=== PATIENT | male | born 1995 | race Caucasian/White ===

== ENCOUNTER 2020-04-02 21:29 | Emergency (ER) | payer OTHER ==
[~2020-04-02] VITALS: Ht 175.3 cm; Wt 63.5 kg
[~2020-04-02 21:29] MED LIST: Crutch1 EACH MISC; HYDR1TAB94 PO; IBUP600 PO; Norco 5-325 Ta1 EACH PO
== END 2020-04-02 21:58 | disposition home or self-care (01) ==
LOC: ER 21:29
DX: F10.129 Alcohol abuse with intoxication, unspecified (principal); Z87.891 Personal history of nicotine dependence
CPT/HCPCS: 99283